=== PATIENT | male | born 1985 | race Asian ===

== ENCOUNTER 2019-04-10 05:14 | Emergency (ER) | payer OTHER ==
[2019-04-10] MEDS ORDERED: IBUPROFEN 600 MG TAB PO (05:30)
== END 2019-04-10 08:10 | disposition home or self-care (01) ==
LOC: E/R 05:14
DX: S09.90XA Unspecified injury of head, initial encounter (principal); S69.91XA Unspecified injury of right wrist, hand and finger(s), initial encounter; S89.91XA Unspecified injury of right lower leg, initial encounter; X99.8XXA Assault by other sharp object, initial encounter
CPT/HCPCS: 99283